=== PATIENT | female | born 1950 | race Caucasian/White ===

== ENCOUNTER → 2016-10-11 | Outpatient (CLI) | payer MEDICARE, OTHER | LOC: CT 10:00 | DX: C50.919 Malignant neoplasm of unspecified site of unspecified female breast (principal); J90 Pleural effusion, not elsewhere classified; R16.0 Hepatomegaly, not elsewhere classified | CPT/HCPCS: 71260; J7050; Q9962 ==

== ENCOUNTER → 2016-10-22 | Outpatient (CLI) | payer MEDICARE, OTHER ==
[2016-10-22 09:28] LABS: TOTAL PROTEIN, BODY FLUID 3.1 gm/dL
== END ==
LOC: OPSV 07:00
PROVIDERS: Internal Medicine Pulmonary Disease
DX: Z51.81 Encounter for therapeutic drug level monitoring (principal); J90 Pleural effusion, not elsewhere classified; Z79.01 Long term (current) use of anticoagulants
CPT/HCPCS: 32555; 36415; 71020; 83615; 84157; 85610; 88341; 88342

== ENCOUNTER → 2020-10-24 | Outpatient (CLI) | payer MEDICARE, SELFPAY ==
[~2020-10-24] MED LIST: ALENDRONATE SOD70 MG PO; CARDIZEM CD180 MG PO; DILTIAZEM 24HR120 M1 PO; FLONASE 0.05% N16 GM; HYDROCHLOROTHIA25 MG PO; IBRANCE125 MG PO; LASIX20 MG PO; LOPRESSOR 25 MG25 MG PO; LOPRESSOR 50 MG50 MG PO; METHIMAZOLE5 MG PO; PROMETHAZINE HC25 M1 PO; TOPROL XL50 MG PO; WARFARIN SODIUM2 MG PO; WARFARIN SODIUM3 MG PO
== END ==
LOC: CT 08-24 14:00
DX: C50.912 Malignant neoplasm of unspecified site of left female breast (principal); C77.3 Secondary and unspecified malignant neoplasm of axilla and upper limb lymph nodes; J91.0 Malignant pleural effusion; C77.1 Secondary and unspecified malignant neoplasm of intrathoracic lymph nodes; J90 Pleural effusion, not elsewhere classified; K76.89 Other specified diseases of liver
CPT/HCPCS: 36415; 71250; 82565

== ENCOUNTER → 2021-05-02 | Outpatient (CLI) | payer MEDICARE | LOC: KOH-I 12:37 | DX: C50.912 Malignant neoplasm of unspecified site of left female breast (principal); C77.3 Secondary and unspecified malignant neoplasm of axilla and upper limb lymph nodes; J91.0 Malignant pleural effusion; C77.1 Secondary and unspecified malignant neoplasm of intrathoracic lymph nodes | CPT/HCPCS: 71250; 74176 ==

== ENCOUNTER → 2021-09-05 | Outpatient (CLI) | payer MEDICARE | LOC: KOH-I 12:37 | DX: C50.912 Malignant neoplasm of unspecified site of left female breast (principal); C77.3 Secondary and unspecified malignant neoplasm of axilla and upper limb lymph nodes; J91.0 Malignant pleural effusion; C77.1 Secondary and unspecified malignant neoplasm of intrathoracic lymph nodes | CPT/HCPCS: 71250; 74176 ==

== ENCOUNTER → 2022-01-25 | Outpatient (CLI) | payer MEDICARE | LOC: HEART 5 13:29 | DX: I48.91 Unspecified atrial fibrillation (principal); I08.3 Combined rheumatic disorders of mitral, aortic and tricuspid valves; I27.20 Pulmonary hypertension, unspecified | CPT/HCPCS: 93306 ==

== ENCOUNTER → 2022-03-08 | Outpatient (CLI) | payer MEDICARE | LOC: KOH-I 02-05 15:00 | DX: C50.912 Malignant neoplasm of unspecified site of left female breast (principal); C77.3 Secondary and unspecified malignant neoplasm of axilla and upper limb lymph nodes; J91.0 Malignant pleural effusion; C77.1 Secondary and unspecified malignant neoplasm of intrathoracic lymph nodes | CPT/HCPCS: 71250; 74176 ==